=== PATIENT | male | born 1955 | race Caucasian/White ===

== ENCOUNTER 2018-03-08 10:25 | Emergency (ER) | payer BC ==
[2018-03-08] MEDS ORDERED: Ciprofloxacin 400MG IVPREMIX(* 400 MG/200 ML BAG IVPB ONE (10:32)
[2018-03-08] MEDS ORDERED: NS 0.9% 1000 ML*IV.FLUID IV ONE (10:32)
[2018-03-08 10:54] LABS: ABS Basophils 0 10^3/ul (0-0.2); ABS Eosinophils 0 10^3/ul (0-0.6); ABS Lymphocytes 0.4 10^3/ul (1.0-4.8); ABS Monocytes 0.8 10^3/ul (0-0.8); ABS Neutrophils 6.9 10^3/ul (1.5-7.7); ABS Nucleated RBC 0 10^3/ul; Eosinophil % 0.4 % (0-6); Hematocrit 38 % (42-52); Hemoglobin 13.6 g/dl (14.0-18.0); Lymphocyte % 5.5 % (25-47); Mean Corpuscular HGB Conc 36 g/dl (31-36); Mean Corpuscular Hemoglobin 32 pg (27-31); Mean Corpuscular Volume 89 fL (80-94); Mean Platelet Volume 7.5 um3 (7.4-10.4); Nucleated Red Blood Cells % 0; Platelet Count 147 10^3/ul (150-450); Red Blood Count 4.31 10^6/ul (4.00-5.40); Red Cell Distribution Width 13 % (10.5-15); White Blood Count 8.2 10^3/ul (3.5-10.8)
[2018-03-08 11:05] LABS: INR 0.97 (0.77-1.02)
[2018-03-08 11:19] LABS: EGFR Non-African American 87.8 (>60)
[2018-03-08 11:19] LABS: Urine Appearance Cloudy; Urine Blood 1+ (Negative); Urine Color Straw; Urine Ketones Negative (Negative); Urine Protein Negative (Negative); Urine Specific Gravity 1.001 (1.010-1.030); Urine Urobilinogen Negative (Negative)
--- NOTE | 2018-03-08 11:40 | RAD ---
INDICATION: Fever. COMPARISON: There are no prior studies available for comparison. TECHNIQUE: A portable view of the chest was obtained. The exam is slightly limited the lateral aspect of the left costophrenic angle is cut off on the film. FINDINGS: The heart is within normal limits in size. The lungs are clear. No pleural effusion is seen. IMPRESSION: NO EVIDENCE FOR ACUTE DISEASE.
[2018-03-08 13:45] VITALS: BP 127/82
--- NOTE | 2018-03-08 18:17 | ED ---
Regina Jaquez SooYoung, scribed for Prachi Stoddard MD on 03/08/18 at 1034 . HPI Febrile Illness - HPI Summary HPI Summary: A 62 y/o M presents to ED with c/o subjective fever onset last night. Pt still felt warm this AM when he woke up, decided to come in. He has not taken medication for the fever. Associated sx: aching joints, tenderness to skin; dysuria described as "irritating." Denies n/v, CP, SOB. When urinating, it was only a trickle last night. Pt has not been seen by a urologist or had his prostate checked. Pt urinates 1x at night. Denies having difficulty starting a stream of urine. He notes his urine was "gel-like" during his last urination. He notes having a mild cold with URI sx onset two weeks ago which has not completely resolved. Pt states being otherwise healthy. SHx: neurosurgery on back. Pt works at [employer] [place] PCP was Dr. Forde who retired and he does not have a new one yet. Home Medications Medication Instructions Recorded Confirmed Type NK [No Home Medications Reported] 05/09/13 03/08/18 History - History of Current Complaint Chief Complaint: EDFever Time Seen by Provider: 03/08/18 10:32 Hx Obtained From: Patient Onset/Duration: Started Hours Ago, Atraumatic, Still Present Timing: Constant, Lasting Days - onset yesterday Initial Severity: Mild Current Severity: Mild Pain Intensity: 3 Pain Scale Used: 0-10 Numeric Aggravating Factors: Nothing Alleviating Factors: Nothing Associated Signs and Symptoms: Dysuria - "irritating", Joint Pain - aches, Other : - POS: skin tenderness; NEG: n/v, CP, SOB - Allergy/Home Medications Allergies/Adverse Reactions: Allergies Allergy/AdvReac Type Severity Reaction Status Date / Time No Known Allergies Allergy Verified 03/08/18 10:29 PMH/Surg Hx/FS Hx/Imm Hx Previously Healthy: Yes Endocrine/Hematology History: Denies: Hx Diabetes, Hx Thyroid Disease Cardiovascular History: Denies: Hx Hypertension Respiratory History: Denies: Hx Asthma, Hx Chronic Obstructive Pulmonary Disease (COPD) GI History: Denies: Hx Ulcer - Surgical History Surgery Procedure, Year, and Place: Back surgery Infectious Disease History: No Infectious Disease History: Denies: Hx Clostridium Difficile, Hx Hepatitis, Hx Human Immunodeficiency Virus (HIV), Traveled Outside the [place] in Last 30 Days - Family History Known Family History: Positive: Other - mother - ALZ. father still alive. - Social History Occupation: Employed Full-time Lives: With Family Alcohol Use: Occasionally Hx Substance Use: No Substance Use Type: Reports: None Hx Tobacco Use: No Smoking Status (MU): Never Smoked Tobacco Review of Systems Positive: Fever Negative: Chest Pain Negative: Shortness Of Breath Negative: Vomiting, Nausea Positive: dysuria, discharge - "gel-like" when urinating Skin: Other - "tenderness" All Other Systems Reviewed And Are Negative: Yes Physical Exam - Summary Physical Exam Summary: Appearance: Ill-appearing, mild distress, well-nourished Skin: Warm, diaphoretic, flushed Head: Normal Head/Face inspection, atraumatic Eyes: Conjunctiva clear ENT: Dry mucosa Neck: Supple, no nodes, no JVD Respiratory: Lungs clear, normal breath sounds, no respiratory distress Cardio: RRR, No murmur, pulses normal, brisk capillary refill Abdomen: Soft, nontender, no masses, no guarding, no rebound, no CVA tenderness Bowel sounds: Present Musculoskeletal: Strength Intact/ROM intact, no calf tenderness, no edema. Psychological: Normal Neuro: Alert, muscle tone normal, no focal deficit Triage Information Reviewed: Yes Vital Signs On Initial Exam: Initial Vitals Temp Pulse Resp BP Pulse Ox 99.4 F 83 17 166/94 99 03/08/18 10:26 03/08/18 10:26 03/08/18 10:26 03/08/18 10:26 03/08/18 10:26 Vital Signs Reviewed: Yes Diagnostics - Vital Signs Vital Signs Temp Pulse Resp BP Pulse Ox 03/08/18 10:26 99.4 F 83 17 166/94 99 - Laboratory Lab Results: Lab Results 03/08/18 03/08/18 03/08/18 Range/Units 10:43 10:43 10:43 WBC 8.2 (3.5-10.8) 10^3/ul RBC 4.31 (4.00-5.40) 10^6/ul Hgb 13.6 L (14.0-18.0) g/dl Hct 38 L (42-52) % MCV 89 (80-94) fL MCH 32 H (27-31) pg MCHC 36 (31-36) g/dl RDW 13 (10.5-15) % Plt Count 147 L (150-450) 10^3/ul MPV 7.5 (7.4-10.4) um3 Neut % (Auto) 84.2 H (38-83) % Lymph % (Auto) 5.5 L (25-47) % Trinity % (Auto) 9.3 H (0-7) % Eos % (Auto) 0.4 (0-6) % Baso % (Auto) 0.6 (0-2) % Absolute Neuts (auto) 6.9 (1.5-7.7) 10^3/ul Absolute Lymphs (auto) 0.4 L (1.0-4.8) 10^3/ul Absolute Monos (auto) 0.8 (0-0.8) 10^3/ul Absolute Eos (auto) 0 (0-0.6) 10^3/ul Absolute Basos (auto) 0 (0-0.2) 10^3/ul Absolute Nucleated RBC 0 10^3/ul Nucleated RBC % 0 ESR 29 H (0-20) mm/Hr INR (Anticoag Therapy) 0.97 (0.77-1.02) APTT 29.8 (26.0-36.3) seconds Sodium 132 L (135-145) mmol/L Potassium 3.7 (3.5-5.0) mmol/L Chloride 96 L (101-111) mmol/L Carbon Dioxide 27 (22-32) mmol/L Anion Gap 9 (2-11) mmol/L BUN 8 (6-24) mg/dL Creatinine 0.88 (0.67-1.17) mg/dL Est GFR ( Amer) 106.2 (>60) Est GFR (Non-Af Amer) 87.8 (>60) BUN/Creatinine Ratio 9.1 (8-20) Glucose 98 (70-100) mg/dL Lactic Acid (0.5-2.0) mmol/L Calcium 9.0 (8.6-10.3) mg/dL Total Bilirubin 0.80 (0.2-1.0) mg/dL AST 15 (13-39) U/L ALT 16 (7-52) U/L Alkaline Phosphatase 73 (34-104) U/L Total Creatine Kinase 145 (10-223) U/L Troponin I 0.01 (<0.04) ng/mL C-Reactive Protein 60.65 H (<8.01) mg/L B-Natriuretic Peptide ( - 100) pg/mL Total Protein 6.4 (6.4-8.9) g/dL Albumin 4.0 (3.2-5.2) g/dL Globulin 2.4 (2-4) g/dL Albumin/Globulin Ratio 1.7 (1-3) Urine Color Urine Appearance Urine pH (5-9) Ur Specific [place] (1.010-1.030) Urine Protein (Negative) Urine Ketones (Negative) Urine Blood (Negative) Urine Nitrate (Negative) Urine Bilirubin (Negative) Urine Urobilinogen (Negative) Ur Leukocyte Esterase (Negative) Urine WBC (Auto) (Absent) Urine RBC (Auto) (Absent) Urine Bacteria (Absent) Urine Glucose (Negative) 03/08/18 03/08/18 03/08/18 Range/Units 10:43 10:43 11:05 WBC (3.5-10.8) 10^3/ul RBC (4.00-5.40) 10^6/ul Hgb (14.0-18.0) g/dl Hct (42-52) % MCV (80-94) fL MCH (27-31) pg MCHC (31-36) g/dl RDW (10.5-15) % Plt Count (150-450) 10^3/ul MPV (7.4-10.4) um3 Neut % (Auto) (38-83) % Lymph % (Auto) (25-47) % Trinity % (Auto) (0-7) % Eos % (Auto) (0-6) % Baso % (Auto) (0-2) % Absolute Neuts (auto) (1.5-7.7) 10^3/ul Absolute Lymphs (auto) (1.0-4.8) 10^3/ul Absolute Monos (auto) (0-0.8) 10^3/ul Absolute Eos (auto) (0-0.6) 10^3/ul Absolute Basos (auto) (0-0.2) 10^3/ul Absolute Nucleated RBC 10^3/ul Nucleated RBC % ESR (0-20) mm/Hr INR (Anticoag Therapy) (0.77-1.02) APTT (26.0-36.3) seconds Sodium (135-145) mmol/L Potassium (3.5-5.0) mmol/L Chloride (101-111) mmol/L Carbon Dioxide (22-32) mmol/L Anion Gap (2-11) mmol/L BUN (6-24) mg/dL Creatinine (0.67-1.17) mg/dL Est GFR ( Amer) (>60) Est GFR (Non-Af Amer) (>60) BUN/Creatinine Ratio (8-20) Glucose (70-100) mg/dL Lactic Acid 0.7 (0.5-2.0) mmol/L Calcium (8.6-10.3) mg/dL Total Bilirubin (0.2-1.0) mg/dL AST (13-39) U/L ALT (7-52) U/L Alkaline Phosphatase (34-104) U/L Total Creatine Kinase (10-223) U/L Troponin I (<0.04) ng/mL C-Reactive Protein (<8.01) mg/L B-Natriuretic Peptide 25 ( - 100) pg/mL Total Protein (6.4-8.9) g/dL Albumin (3.2-5.2) g/dL Globulin (2-4) g/dL Albumin/Globulin Ratio (1-3) Urine Color Straw Urine Appearance Cloudy Urine pH 7.0 (5-9) Ur Specific [place] 1.001 L (1.010-1.030) Urine Protein Negative (Negative) Urine Ketones Negative (Negative) Urine Blood 1+ A (Negative) Urine Nitrate Negative (Negative) Urine Bilirubin Negative (Negative) Urine Urobilinogen Negative (Negative) Ur Leukocyte Esterase 3+ A (Negative) Urine WBC (Auto) 3+(>20/hpf) A (Absent) Urine RBC (Auto) Trace(0-2/hpf) (Absent) Urine Bacteria Absent (Absent) Urine Glucose Negative (Negative) Result Diagrams: 03/08/18 10:43 03/08/18 10:43 Lab Statement: Any lab studies that have been ordered have been reviewed, and results considered in the medical decision making process. - Radiology CXR Xray Interpretation: No Acute Changes - IMPRESSION: No evidence for acute dz. ED physician has reviewed this radiology report and agrees. Radiology Interpretation Completed By: Radiologist - EKG 1044 Cardiac Rate: NL EKG Rhythm: Sinus Rhythm - 78bpm ST Segment: Non-Specific Ectopy: None EKG Interpretation: Nml AVCT, prolonged IVCT in nonspec pattern (118), nml QTc. No acute change EKG Comparison: Other - No prev EKG Re-Evaluation - Re-Evaluation 1 Re-Evaluation Time: 13:20 Change: Improved Comment: Discussing lab results and imaging. Pt denies any pain, states feeling better. Bedside temp: 98.4 F. Will D/C home. Pt voiced understanding. Course/Dx - Course Course Of Treatment: Urines show 1+ blood, 3+ leukocyte esterase, 3+ WBC. Allergies noted. High blood pressure noted. Pt medications reviewed this visit. - Diagnoses Provider Diagnoses: Elevated blood pressure reading without diagnosis of hypertension, UTI ( urinary tract infection) Discharge - Sign-Out/Discharge Documenting (check all that apply): Discharge/Admit/Transfer - D/C home - Discharge Plan Condition: Stable Disposition: HOME Prescriptions: Ciprofloxacin TAB* [Cipro 500 MG TAB*] 500 mg PO BID #14 tab Patient Education Materials: Ciprofloxacin (By mouth), Urinary Tract Infection in Men (ED) Forms: *Work Release Referrals: [facility] [place] [facility] [Outside] [facility] [Outside] (2 days as needed) Additional Instructions: You have a urinary tract infection. Take your next dose of Ciprofloxacin tonight. Drink lots of fluids. Your blood pressure reading today was 166/94 which is HYPERTENSIVE. Establish with a new primary care provider and follow-up within 4 weeks for blood pressure readings and further evaluation. If you cant find a provider, try to check your blood pressure on your own and see if its above 120/80. If so, follow up for further evaluation and treatment. We have given you the phone number for the [facility] and they can help you get established with a primary care provider. RETURN TO THE EMERGENCY DEPARTMENT FOR CHANGING OR WORSENING SYMPTOMS. - Billing Disposition and Condition Condition: STABLE Disposition: Home The documentation as recorded by the Regina lund SooYoung accurately reflects the service I personally performed and the decisions made by me, Prachi Stoddard MD.
== END 2018-03-08 13:44 | disposition home or self-care (01) ==
LOC: ED 10:25
DX: N39.0 Urinary tract infection, site not specified (principal); R03.0 Elevated blood-pressure reading, without diagnosis of hypertension
CPT/HCPCS: 36415; 71045; 80053; 81003; 81015; 82550; 83605; 83880; 84484; 85025; 85610; 85652; 85730; 86140; 87040; 87086; 93005; 96361; 96374; 99283; J0744

== ENCOUNTER 2019-09-06 16:21 | Emergency (ER) | payer BC ==
--- NOTE | 2019-09-06 17:11 | ED ---
Palpitations / Dysrhythmia - HPI Summary HPI Summary: This pt is a 64 Y/O M presenting to [facility] with a CC of his heart skipping a beat. He states that the onset was at 1100 this morning. He states that he has never had these symptoms before. He denies any cardiac Hx, HTN, smoking, hyper or hypothyroidism, and recreational drug use. He states that he feels the skipped beat about once every minute and it has been continuous since the onset. He states that he has previously had a recent cold that resulted in a cough and rhinorrhea. He denies any fevers, chills, N/V/D, CP, SOB, and headaches. He states that he exercises regularly and that he has never experienced CP or SOB during his exercise. He has no aggravating or alleviating factors. - History of Current Complaint Chief Complaint: EDDysrhythmPalp Time Seen by Provider: 09/06/19 17:02 Hx Obtained From: Patient Onset/Duration: Sudden Onset, Lasting Hours - 6 Timing: Constant Severity Currently: None Character: Skipped Beats Aggravating: Nothing Alleviating: Nothing Associated Signs & Symptoms: Negative - fevers, chills, N/V/D, CP, SOB, and headaches - Allergy/Home Medications Allergies/Adverse Reactions: Allergies Allergy/AdvReac Type Severity Reaction Status Date / Time No Known Allergies Allergy Verified 09/06/19 16:25 Home Medications: Home Medications NK [No Home Medications Reported] 09/06/19 [History Confirmed 09/06/19] PMH/Surg Hx/FS Hx/Imm Hx Previously Healthy: Yes Endocrine/Hematology History: Denies: Hx Diabetes, Hx Thyroid Disease Cardiovascular History: Denies: Hx Hypertension Respiratory History: Denies: Hx Asthma, Hx Chronic Obstructive Pulmonary Disease (COPD) GI History: Denies: Hx Ulcer - Cancer History Hx Chemotherapy: No Hx Radiation Therapy: No - Surgical History Surgical History: Yes Surgery Procedure, Year, and Place: Back surgery - Immunization History Immunizations Up to Date: Yes Infectious Disease History: No Infectious Disease History: Denies: Hx Clostridium Difficile, Hx Hepatitis, Hx Human Immunodeficiency Virus (HIV), Traveled Outside the [place] in Last 30 Days - Family History Known Family History: Positive: Other - mother - ALZ. father still alive. - Social History Occupation: Employed Full-time Lives: With Family Alcohol Use: Occasionally Hx Substance Use: No Substance Use Type: Reports: None Hx Tobacco Use: No Smoking Status (MU): Never Smoked Tobacco Review of Systems Negative: Fever, Chills Positive: Nasal Discharge Positive: Palpitations - skipped beat. Negative: Chest Pain Positive: Cough Negative: Vomiting, Diarrhea, Nausea Negative: Headache All Other Systems Reviewed And Are Negative: Yes Physical Exam - Summary Physical Exam Summary: Constitutional: Well-developed, Well-nourished, Alert. (-) Distressed Skin: Warm, Dry HENT: Normocephalic; Atraumatic Eyes: Conjunctiva normal Neck: Musculoskeletal ROM normal neck. (-) JVD, (-) Stridor, (-) Tracheal deviation Cardio: Rhythm regular, rate normal, Heart sounds normal; Intact distal pulses; The pedal pulses are 2+ and symmetric. Radial pulses are 2+ and symmetric. Run of 4 PVCs. Pulmonary/Chest wall: Effort normal. (-) Respiratory distress, (-) Wheezes, (-) Rales Abd: Soft, (-) tenderness, (-) Distension, (-) Guarding, (-) Rebound Musculoskeletal: (-) Edema Neuro: Alert, Oriented x3 Psych: Mood and affect Normal Triage Information Reviewed: Yes Vital Signs On Initial Exam: Initial Vitals Temp Pulse Resp BP Pulse Ox 97.3 F 70 16 183/111 98 09/06/19 16:23 09/06/19 16:23 09/06/19 16:23 09/06/19 16:23 09/06/19 16:23 Vital Signs Reviewed: Yes Procedures - Sedation Patient Received Moderate/Deep Sedation with Procedure: No Diagnostics - Vital Signs Vital Signs Temp Pulse Resp BP Pulse Ox 09/06/19 16:23 97.3 F 70 16 183/111 98 - Laboratory Result Diagrams: 09/06/19 17:12 09/06/19 17:12 Lab Statement: Any lab studies that have been ordered have been reviewed, and results considered in the medical decision making process. - EKG 171 Cardiac Rate: NL - 72 BPM EKG Rhythm: Sinus Rhythm ST Segment: Normal Ectopy: PACs Summary of EKG Findings: An EKG at 1717 with a NSR at 72 BPM and PACs without ischemic changes. Interpreted by Dr. Botello 09/06/2019, 1717. Course/Dx - Course Course Of Treatment: This pt is a 64 Y/O M presenting to [facility] with a CC of his heart skipping a beat. He states that the onset was at 1100 this morning. He states that he has never had these symptoms before. He denies any cardiac Hx, HTN, smoking, hyper or hypothyroidism, and recreational drug use. He states that he feels the skipped beat about once every minute and it has been continuous since the onset. He states that he has previously had a recent cold that resulted in a cough and rhinorrhea. He denies any fevers, chills, N/V/D, and headaches. He has premature beats visible during his PE which showed a run of 4 PVCs. He will be diagnosed with PVCs. An EKG at 1717 with a NSR at 72 BPM and PACs without ischemic changes. '. His labratory results have no significant abnormalities for his CC. His Lactic Acid, Troponin, and TSH levels are all within normal limits. He will be discharged home with a Dx of PVCs and PACs and instructed to follow up with his PCP. - Diagnoses Provider Diagnoses: PVC (premature ventricular contraction), PAC (premature atrial contraction) Discharge ED - Sign-Out/Discharge Documenting (check all that apply): Patient Departure - discharge - Discharge Plan Condition: Stable Disposition: HOME Patient Education Materials: Premature Ventricular Contractions (ED), Premature Atrial Contractions (ED) Referrals: [facility] [Outside] - 2 Days Additional Instructions: PLEASE FOLLOW UP WITH YOUR PRIMARY CARE PHYSICIAN IN 1-3 DAYS AND RETURN TO THE EMERGENCY DEPARTMENT FOR ANY NEW OR WORSENING SYMPTOMS. - Attestation Statements Document Initiated by Scribe: Yes Documenting Scribe: Kristian Valdez Provider For Whom Scribe is Documenting (Include Credential): Blayne Botello DO Scribe Attestation: Kristian Jaquez, scribed for Blayne Botello DO on 09/06/19 at 1854. Status of Scribe Document: Ready
[2019-09-06 17:31] LABS: ABS Basophils 0.1 10^3/ul (0-0.2); ABS Eosinophils 0.2 10^3/ul (0-0.6); ABS Lymphocytes 0.7 10^3/ul (1.0-4.8); ABS Monocytes 0.6 10^3/ul (0-0.8); ABS Neutrophils 2.6 10^3/ul (1.5-7.7); Eosinophil % 3.9 %; Hematocrit 44 % (42-52); Hemoglobin 15.3 g/dL (14.0-18.0); Lymphocyte % 16.8 %; Mean Corpuscular HGB Conc 35 g/dL (31-36); Mean Corpuscular Hemoglobin 32 pg (27-31); Mean Corpuscular Volume 91 fL (80-94); Mean Platelet Volume 8.4 fL (7.4-10.4); Platelet Count 149 10^3/uL (150-450); Red Blood Count 4.78 10^6 /uL (4.18-5.48); Red Cell Distribution Width 13 % (10-15); White Blood Count 4.2 10^3/uL (3.5-10.8)
[2019-09-06 17:48] LABS: Albumin 4.7 g/dL (3.2-5.2); Albumin/Globulin Ratio 2.5 (1-3); BUN/Creatinine Ratio 13.5 (8-20); Calcium 9.2 mg/dL (8.6-10.3); EGFR African American 104.1 (>60); EGFR Non-African American 86.1 (>60); Globulin 1.9 g/dL (2-4); Magnesium 2.2 mg/dL (1.9-2.7); Potassium 3.8 mmol/L (3.5-5.0); Total Bilirubin 0.5 mg/dL (0.2-1.0); Total Protein 6.6 g/dL (6.4-8.9)
[2019-09-06 17:49] LABS: Troponin I 0.01 ng/mL (<0.03)
[2019-09-06 18:16] LABS: TSH (Thyroid Stimulating Horm) 4.95 mcIU/mL (0.34-5.60)
[2019-09-06 19:06] VITALS: BP 161/89
== END 2019-09-06 19:05 | disposition home or self-care (01) ==
LOC: ED 16:21
DX: I49.3 Ventricular premature depolarization (principal); I49.1 Atrial premature depolarization; R00.2 Palpitations; R05 Cough
CPT/HCPCS: 36415; 80053; 83605; 83735; 84443; 84484; 85025; 93005; 99282